=== PATIENT | female | born 1940 | race Caucasian/White ===

== ENCOUNTER 2024-09-24 07:36 | Day surgery (SDC) | payer MEDICARE, OTHER, SELFPAY ==
--- NOTE | 2024-09-23 16:19 | CONSULT.STRU ---
Consultation
-
Date/Time Consultation Requested: 09/24/2024
Date/Time Consultation Performed: 09/24/2024
Requesting Provider: Kenneth Carpio MD
Performing Provider: ANNA Cisneros
Reason for Consultation: /TAVR
Patient History
Physicians
Family Physician: Hali Caban DO
Outpatient Hydrometeorological Technician: Esme French MD
Primary Hydrometeorological Technician: Esme French MD
History of Present Illness
Ms. Delgadillo is a very pleasant 83 yof that presents with aortic stenosis of her bioprosthetic Flowers 21 Magna Ease AVR. Patient states she was on vacation in [place] with her family over the summer and noticed KAMARA when walking down to the [place]ischer and
up to her car. She also states that she has had progressive KAMARA and fatigue since that time. Her echocardiogram from 08/08/2024 is notable for AV P/M 48/26, KEVIN 0.86, DI 0.4, pk mani 3.47. Cardiac catheterization hemodynamics are significant for VALVE
HEMODYNAMICS on pullback: Aortic Valve peak to peak gradient (mmHg): 9 mean gradient (mmHg): 20. Discussed the pathophysiology and treatment options of including redo SAVR and TAVR. Explained the evaluation process comprising of CT scan, dental
clearance (completed), CT surgical consult (completed MPT), and a heart team discussion. Also discussed with patient that the heart team will review all of her diagnostics and make a recommendation for plan of care. TAVR booklet, contact
information, prescriptions, and appointments given to patient. Allowed for and answered questions at bedside.
Past Medical History
Past Medical History: CAD, CVA/TIA, HTN, Psychiatric (anxiety, depression) and Other (HLD, Factor V deficiency, DVT, diverticulosis, anemia, Lyme's disease, myalgia, splenic infarction, thoracic compression fracture, interstitial cystitis, hiatal
hernia, basal cell ca)
Past Surgical History
Past Surgical History: CABG (2011 ([facility])), Tonsilectomy, Valve (AVR 21mm Flowers Magna Ease) and Other (salpingoopherectomy, MOHS (nose), basal cell ca removed from LUE)
Dental History
[facility]--Clearance completed.
Family History
Mother: at Age (80) and Cause of (heart disease, DM)
Father: at Age (65) and Cause of (heart disease, ?Factor V, AL)
Family Medical History: Other (Factor V)
Social History
Alcohol: Occasional
Drug: None
Tobacco: Former Smoker
Personal: Partner
Living: Other (s/o)
Employment: Retired (nurse)
Allergies
Atorvastatin -Myalgia
Home Medications
Aspirin Adult Low Dose(Aspirin) 81 MG Tablet Delayed Release 1 tablet Orally Once a day
Klor-Con M20(Potassium Chloride Reena ER) 20 MEQ Tablet Extended Release 1 tablet with food Orally 3 times/week
Losartan Potassium 50 MG Tablet 1 tablet Orally Once a day
Metoprolol Succinate ER 25 MG Tablet Extended Release 24 Hour 0.5 tablet Orally Once a day dose 12.5mg
Vitamin D3 50 MCG (2000 UT) Capsule 1 capsule Orally Once a day
Warfarin Sodium , Notes to Pharmacist: as directed
STS%
STS %: 5.35
Review of Systems
-
History Source: Patient
General: Reports Fatigue
HEENT: Reports No Symptoms
Respiratory: Reports KAMARA
Cardiac: Reports No Symptoms
Abdomen/GI: Reports No Symptoms
: Reports No Symptoms
Musculoskeletal: Reports No Symptoms
Skin: Reports No Symptoms
Neurological: Reports No Symptoms
Vascular: Reports No Symptoms
Physical Exam
Labs
09/22/2024
HH: 11.2/36.4
Plt 291K
BUN/Creatinine: 15/0.86
GFR 68
Diagnostic Studies
ECHOCARDIOGRAM 08/08/2024:
EF 60-65%
AV: bioprosthetic. Pk Mani 3.47, AV P/M 48/26, KEVIN 0.86, DI 0.4
Cardiac catheterization 09/24/2024:
ASSESSMENT:
1: Widely patent WYNN to LAD and nonobstructive [place] coronary artery disease. This is consistent with the recent normal nuclear perfusion imaging stress test result.
2: Aortic stenosis. This appears at worst moderate based on these hemodynamic findings. Will correlate with the noninvasive echo studies and discussed with Dr. French.
3: Poorly controlled systemic hypertension. I wonder if this may be playing a role in her intermittent symptoms.
CONCLUSIONS and RECOMMENDATIONS:
1: Continue medical therapy for coronary artery disease. Will resume Coumadin therapy after groin check on Sunday confirms that there were no bleeding complications from femoral arterial access.
2: Add amlodipine to losartan and metoprolol for tighter blood pressure control.
3: Will proceed with possible TAVR evaluation and at least get CT angiography in an effort to better understand what her options will be if aortic valve intervention is required either in the near future or later on. Given her extreme aortic
tortuosity I am concerned that femoral access for TAVR may be difficult.
Procedure Type:�Isolated AVR
PERIOPERATIVE OUTCOME ESTIMATE %
Operative Mortality 5.35%
Morbidity & Mortality 12.5%
Stroke 3.82%
Renal Failure 2.34%
Reoperation 4.18%
Prolonged Ventilation 7.69%
Deep Sternal Wound Infection 0.097%
Long Hospital Stay (>14 days) 6.39%
Short Hospital Stay (<6 days)* 29.5%
Exam
General: Well Developed, Well Nourished, No Apparent Distress and Comfortable
HEENT: Normocephalic and Moist Mucous Membranes
Neck: Trachea Midline
Respiratory: Clear (Anteriorly)
Cardiac: Regular Rhythm and Murmur (III/ SUELLEN)
GI: Soft, Non Tender and Non Distended
Rectal: Deferred by Provider
Skin: Warm and Dry
Neuro: Awake, Alert, Oriented and AO x 3
Psych: Calm
Assessment / Plan
-
Aortic stenosis of prosthetic AV
Continue TAVR evaluation
Trend Creatinine after contrast (Rx given)
TAVR CT scan (10/08)
CT surgical consult ([facility] 09/16)
Frailty testing and [facility]
Dental clearance
Heart team discussion
Data Reviewed
-
EKG: Report Reviewed by me (NSR)
Wellness Nurse: Report Reviewed by me and Discussed with Physician
Echo: Report Reviewed by me and Discussed with Physician
Labs: Labs Reviewed by me
Old Records: Reviewed (Dr. French and Dr. Corey's office notes)
Total Time Spent with Patient (in minutes): 45
[2024-09-24] VITALS (16 sets, daily range): BP systolic 147–187; BP diastolic 87–101; BMI 26.5; BMI 27.8
[2024-09-24 08:03] LABS: INR 1.17; PT 15.4 Sec (11.4-14.6)
--- NOTE | 2024-09-24 11:16 | ITS.CL.CATH ---
Mechanic Foreman - Catheterization
Cardiac Catheterization
Procedure Report:
LEFT HEART CATHETERIZATION
Date of Procedure: September 24, 2024
Primary Care Physician: Dr. Hali Caban
Primary Farm Butcher: Dr. Esme Loaiza
Procedures performed:
1: Coronary angiography
2: Left ventricular hemodynamic assessment
3: Left internal mammary artery bypass graft angiography
INDICATION: The patient is an 83-year-old woman with a past medical history significant for bioprosthetic AVR and WYNN to LAD CABG in 2011, hypertension and on Coumadin for prior DVT with thrombophilia who is referred for coronary angiography and
aortic valve hemodynamic assessment. Coumadin was held for the procedure. Echocardiography performed on August 08 showed normal LV systolic function with a visually estimated ejection fraction of 60 to 65%. The previously placed 21 mm
bioprosthetic valve had a mean gradient of 26 mmHg with an aortic valve area by the continuity equation of 0. Eight 6 cm� and a aortic valve dimensionless index of 0.4. On September 03 she underwent a exercise nuclear perfusion imaging study where
she walked 5 minutes on a J Luis protocol complexing 7 METS of activity. There were no chest pain or EKG changes consistent with ischemia and nuclear perfusion images were normal. Of note her resting blood pressure was 178/98 mmHg and the peak
exercise was 190/88 mmHg.
ACCESS: The patient was prepped and draped in usual sterile fashion. A 5 Syriac sheath was placed in the right common femoral artery using the Seldinger over the wire technique.
HEMODYNAMIC FINDINGS (mmHg):
LV(s/d,EDP): 175/10, 17
Ao(s/d,m): 164/83, 117
VALVE HEMODYNAMICS on pullback:
Aortic Valve
peak to peak gradient (mmHg): 9
mean gradient (mmHg): 20
ANGIOGRAPHIC FINDINGS:
Single-plane Left Ventriculography performed in the ROWLEY projection: Not done. Of note she has extreme aortic tortuosity which made advancing catheters across her bioprosthetic valve challenging.
Coronary Angiography:
Dominance: Right
Left Main: Normal
Left Anterior Descending: The left anterior descending artery is a medium caliber vessel that has heavy proximal and mid calcifications but appears free of focal stenotic disease. There is competitive flow from a widely patent WYNN graft noted at
the takeoff of a large diagonal branch which is widely patent with normal flow.
Left Circumflex: The left circumflex is a medium caliber system that gives rise to a high OM1 coursing in a ramus distribution. There is some calcification involving the circumflex ostium and this bifurcation but no clear obstructive disease with
at worst a 40-50% stenosis after OM1 takeoff. The distal circumflex bifurcates into 2 medium caliber OM's that have mild luminal irregularities with normal flow.
Right Coronary: The right coronary artery is a medium caliber vessel that has mild luminal irregularities in the midportion and gives rise to a medium caliber posterior descending artery and posterior left ventricular branch system that are widely
patent with normal flow.
WYNN to LAD: It was extremely difficult to advance catheters into the left subclavian artery due to extreme tortuosity of both the aorta and the subclavian. Ultimately nonselective injections of the WYNN graft were performed with a 5 Syriac JR4
catheter. The subclavian artery is widely patent. The graft is widely patent. The touchdown is not well-visualized but appears to be widely patent with normal flow in the distal LAD which is without focal obstructive disease.
Fluoroscopy Time (min): 19
Radiation Dose (mGy): 730
DAP (Gy.cm2): 55
Closure device: None. Manual pressure alone.
Complications: None
ASSESSMENT:
1: Widely patent WYNN to LAD and nonobstructive [place] coronary artery disease. This is consistent with the recent normal nuclear perfusion imaging stress test result.
2: Aortic stenosis. This appears at worst moderate based on these hemodynamic findings. Will correlate with the noninvasive echo studies and discussed with Dr. French.
3: Poorly controlled systemic hypertension. I wonder if this may be playing a role in her intermittent symptoms.
CONCLUSIONS and RECOMMENDATIONS:
1: Continue medical therapy for coronary artery disease. Will resume Coumadin therapy after groin check on Sunday confirms that there were no bleeding complications from femoral arterial access.
2: Add amlodipine to losartan and metoprolol for tighter blood pressure control.
3: Will proceed with possible TAVR evaluation and at least get CT angiography in an effort to better understand what her options will be if aortic valve intervention is required either in the near future or later on. Given her extreme aortic
tortuosity I am concerned that femoral access for TAVR may be difficult.
Kenneth Carpio M.D.
Copy to: Dr. Hali Caban
[2024-09-24] MEDS: TYLENOL 650 MG PO (12:16)
[2024-09-24] MEDS: NORVASC 2.5 MG PO (13:18)
--- NOTE | 2024-09-24 14:05 | PTCARENOTE ---
assisted patient to sitting up at edge of stretcher, tolerated well. groin site clean dry intact. ambulated patient to bathroom and back, pt tolerated well and site remains WNL. patient changing for discharge, primary RN returned from break.
== END 2024-09-24 14:20 | disposition home or self-care (01) ==
LOC: CATH 07:36
PROVIDERS: ATTENDING PHYSICIAN Internal Medicine Interventional Cardiology; FAMILY PHYSICIAN Family Medicine; OTHER PHYSICIAN Internal Medicine Cardiovascular Disease
DX: I25.10 Atherosclerotic heart disease of native coronary artery without angina pectoris (principal); I35.0 Nonrheumatic aortic (valve) stenosis; I10 Essential (primary) hypertension; E78.5 Hyperlipidemia, unspecified; Z95.1 Presence of aortocoronary bypass graft; Z95.3 Presence of xenogenic heart valve; Z86.73 Personal history of transient ischemic attack (TIA), and cerebral infarction without residual deficits; Z87.891 Personal history of nicotine dependence; Z82.49 Family history of ischemic heart disease and other diseases of the circulatory system; Z79.01 Long term (current) use of anticoagulants; Z79.82 Long term (current) use of aspirin
CPT/HCPCS: 85610; 93459; C1769; C1894; Q9967

== ENCOUNTER → 2024-10-08 09:23 | Outpatient (REF) | payer MEDICARE, OTHER, SELFPAY | LOC: RAD 09:23 | PROVIDERS: ATTENDING PHYSICIAN Nurse Practitioner Acute Care; FAMILY PHYSICIAN Family Medicine | DX: I35.0 Nonrheumatic aortic (valve) stenosis (principal) | CPT/HCPCS: 74174; 75572; Q9967 ==